=== PATIENT | female | born 1970 | race Caucasian/White ===

== ENCOUNTER 2020-05-23 15:31 | Emergency (ER) | payer OTHER, SELFPAY ==
[2020-05-23 15:42] VITALS: BP 147/80; PULSE 94; RESP 18; TEMP 36.6; O2SAT 96; BMI 43.2
--- NOTE | 2020-05-23 16:24 | PC.NURSE ---
pt is adamant about going home, her responsible ride is in the waiting room.
--- NOTE | 2020-05-23 16:24 | ED.ALCOHOL ---
HPI - Alcohol General Chief Complaint: ETOH/Substance Use <Darren Glass NP - Last Filed: 05/23/20 16:34> Stated Complaint: AMS / ETOH? <Darren Glass NP - Last Filed: 05/23/20 16:34> Time Seen by Provider: 05/23/20 16:24 <Darren Glass NP - Last Filed: 05/23/20 16:34> Source: EMS <Darren Glass NP - Last Filed: 05/23/20 16:34> Mode of arrival: EMS <Darren Glass NP - Last Filed: 05/23/20 16:34> Limitations: no limitations <Darren Glass NP - Last Filed: 05/23/20 16:34> History of Present Illness HPI narrative: Per EMS called to the grocery store for patient acting erratic and yelling. Once they got their admit to EtOH use. <Darren Glass NP - Last Filed: 05/23/20 16:34> MD complaint: alcohol intoxication <Darren Glass NP - Last Filed: 05/23/20 16:34> Chronic alcohol use: Yes (Some days of the week) <Darren Glass NP - Last Filed: 05/23/20 16:34> Previous visits for alcohol intoxication: Yes <Darren Glass NP - Last Filed: 05/23/20 16:34> Recent trauma: No <Darren Glass NP - Last Filed: 05/23/20 16:34> Associated symptoms: denies other symptoms <Darren Glass NP - Last Filed: 05/23/20 16:34> Treatments prior to arrival: none <Darren Glass NP - Last Filed: 05/23/20 16:34> Related Data Allergies/Adverse Reactions: Allergies Allergy/AdvReac Type Severity Reaction Status Date / Time gabapentin [From NEURONTIN] Allergy Unknown RASH Unverified 12/15/19 16:12 gluten [GLUTEN] Allergy Unknown GI UPSET, Unverified 12/15/19 16:12 GASSY soy [SOY] Allergy Unknown GI UPSET, Unverified 12/15/19 16:12 GASSY Sulfa (Sulfonamide Allergy Unknown RASH Unverified 12/15/19 16:12 Antibiotics) [SULFA(SULFONAMIDE ANTIBIOTICS)] wheat [WHEAT] Allergy Unknown GASSY Unverified 12/15/19 16:12 From OXYCONTIN Allergy Unknown RASH Uncoded 12/15/19 16:12 <Darren Glass NP - Last Filed: 05/23/20 16:34> Review of Systems Review of Systems: Constitutional: No Weight loss, No Fever, No Chills, No Night Sweats, No Fatigue, No Malaise ENT/Mouth: No Hearing loss, No Ear Pain, No Nasal Congestion, No Sinus Pain, No Hoarseness, No sore throat, No Rhinorrhea, No Swallowing Difficulty Eyes: No Eye Pain, No Swelling, No Redness, No Foreign Body, No Discharge, No Vision Changes Cardiovascular: No Chest Pain, No SOB, No Dyspnea on Exertion, No Orthopnea, No Edema, No Palpitations Respiratory: No Cough, No Sputum, No Wheezing, No Smoke Exposure, No Dyspnea Gastrointestinal: No Nausea, No Vomiting, No Diarrhea, No Constipation, No abdominal Pain, No Hematochezia, No Melena Genitourinary: No Dysuria, No Urinary Frequency, No Hematuria, No Urinary Incontinence, No Urgency, No Flank Pain, No Urinary Flow Changes, No Hesitancy Musculoskeletal: No joint pain, No Myalgias, No Joint Swelling Skin: No Skin Lesions, No rash Neuro: No Weakness, No Numbness, No Paresthesias, No Loss of Consciousness, No Dizziness, No Headache Psych: No Anxiety/Panic, No Depression, No SI/HI/AH/VH Heme/Lymph: No Bruising, No Bleeding,No Lymphadenopathy Endocrine: No Polyuria, No Polydipsia, No Temperature Intolerance <Darren Glass NP - Last Filed: 05/23/20 16:34> Yes all other systems are reviewed and are negative <Darren Glass NP - Last Filed: 05/23/20 16:34> [facility] Social History Social History: Social History Advance Directives: No Advance Directives Information Provided: Yes <Darren Glass NP - Last Filed: 05/23/20 16:34> Physical Exam Vital Signs: Vital Signs: Last Vital Signs Temp 97.8 F 05/23/20 15:42 Pulse 94 05/23/20 15:42 Resp 18 05/23/20 15:42 BP 147/80 H 05/23/20 15:42 Pulse Ox 96 02/24/21 15:42 Body Mass Index 43.2 Reviewed <Darren Glass NP - Last Filed: 05/23/20 16:34> Vital Signs: Last Vital Signs Temp 97.8 F 05/23/20 15:42 Pulse 94 05/23/20 15:42 Resp 18 05/23/20 15:42 BP 147/80 H 05/23/20 15:42 Pulse Ox 96 05/23/20 15:42 Body Mass Index 43.2 <Gary Tavares MD - Last Filed: 06/12/20 11:12> Const: Other: Strong odor of EtOH, appears intoxicated and verbally assaultive but able to redirect. Obese Atraumatic <Darrenliam Glass NP - Last Filed: 05/23/20 16:34> General: No acute distress or intoxicated appearing <Darrenliam Glass NP - Last Filed: 05/23/20 16:34> Nutritional Appearance: average body habitus <Darrenliam Glass NP - Last Filed: 05/23/20 16:34> Orientation/consciousness: patient oriented x3 <[facility] JUAN C Glass - Last Filed: 05/23/20 16:34> HENMT: Head: Yes normal to inspection <Darrenliam Glass NP - Last Filed: 05/23/20 16:34> Ears: hearing grossly normal bilaterally <Darrenliam Glass NP - Last Filed: 05/23/20 16:34> Eyes: General: appearance normal, both eyes and all related structures <Darren Glass NP - Last Filed: 05/23/20 16:34> Visual Gallo: normal visual gallo by confrontation <[facility] JUAN C Glass - Last Filed: 05/23/20 16:34> Neck: Neck: Yes normal visual inspection, No positive Brudzinski's sign, No positive Kernig's sign and No tender <Darren JUAN C Glass - Last Filed: 05/23/20 16:34> Thyroid: Thyroid normal <[facility] JUAN C Glass - Last Filed: 05/23/20 16:34> Chest: Chest palpation & inspection: normal inspection of the chest <Darrenliam Glass NP - Last Filed: 05/23/20 16:34> Resp: Effort & Inspection: normal respiratory effort <Darrenliam Glass NP - Last Filed: 05/23/20 16:34> Auscultation: clear to auscultation bilaterally <Darrenliam Glass NP - Last Filed: 05/23/20 16:34> Cardio: Jugular venous distension: no JVD <Darren JUAN C Glass - Last Filed: 05/23/20 16:34> GI: Inspection: Yes normal to inspection <Darren JUAN C Glass - Last Filed: 05/23/20 16:34> Percussion: Yes normal to percussion <Darren JUAN C Glass - Last Filed: 05/23/20 16:34> Auscultation: normal bowel sounds <Darren JUAN C Glass - Last Filed: 05/23/20 16:34> : General: Yes no CVA tenderness <Darrenliam Glass NP - Last Filed: 05/23/20 16:34> Back/Spine/Pelvis: Back: no CVA tenderness <Darrenliam Glass NP - Last Filed: 05/23/20 16:34> Skin: General skin exam: no rashes or lesions noted <Darrenliam Glass NP - Last Filed: 05/23/20 16:34> Neuro: General: patient oriented x3 <Darrenliam Glass NP - Last Filed: 05/23/20 16:34> Extrem: General: Yes normal to inspection <Darrenliam Glass NP - Last Filed: 05/23/20 16:34> Course Course Course Narrative: Alert and oriented x3 According to EMR history of bipolar disorder, alcohol abuse and personality disorder drinking alcohol and went to the grocery store where she got into verbal altercation that led her to come to emergency room by EMS. She declined the need to be here is requesting discharge upon arrival. She is ambulatory with somewhat steady gait but has strong odor of EtOH. <Darren Glass NP - Last Filed: 05/23/20 16:34> I have reviewed the chart <Gary Tavares MD - Last Filed: 06/12/20 11:12> Reevaluation(s) Reevaluation #1: Patient observed in the ER for an hour or so until her /boyfriend was able to come pick her up. <Darren Glass NP - Last Filed: 05/23/20 16:34> Discharge Plan Discharge Clinical Impression: Alcoholic intoxication <Darren Glass NP - Last Filed: 05/23/20 16:34> Patient Disposition: Home, Self-Care <Darren Glass NP - Last Filed: 05/23/20 16:34> Instructions: Alcohol Intoxication (ED) <Darren Glass NP - Last Filed: 05/23/20 16:34> Additional Instructions: Please do not drink alcohol heavily as this can cause harm to health and even Seek detox services Follow up with primary care doctor Return if any concerns or worsening symptoms Thank you <Darren Glass NP - Last Filed: 05/23/20 16:34> Referrals: ED Physician,Generic [Physician] - 1 week <Darren Glass NP - Last Filed: 05/23/20 16:34> Interventions: ED Discharge Assessment Last Done: 05/23/20 16:29 <Darren Glass NP - Last Filed: 05/23/20 16:34> Discharge Date/Time: 05/23/20 16:31 <Darren Glass NP - Last Filed: 05/23/20 16:34>
== END 2020-05-23 16:31 | disposition home or self-care (01) ==
PROVIDERS: Emergency Provider Emergency Medicine
DX: F10.920 Alcohol use, unspecified with intoxication, uncomplicated (principal); F31.9 Bipolar disorder, unspecified; R41.82 Altered mental status, unspecified; Y90.9 Presence of alcohol in blood, level not specified
CPT/HCPCS: 99283

== ENCOUNTER 2020-11-03 13:39 | Emergency (ER) | payer OTHER, SELFPAY ==
--- NOTE | ~2020-11-03 | XR_ITS ---
Indication: Fall EXAMINATION: Right foot, right ankle. 4 views of the right foot demonstrate fracture at the base of the second metatarsal. There is also questionable lucency at the base of the third metatarsal. This area is poorly visualized. The adjacent cuneiforms are poorly evaluated. 3 views of the left ankle demonstrate oblique fracture of the distal fibula. There is some widening of the medial mortise. Distal fibula fracture is not significantly distracted. XR/XR foot RT min 3V IMPRESSION: Oblique fracture of the distal fibula. There is some mild widening of the medial mortise. Fracture at the base of the second metatarsal and I cannot exclude fracture at the base of the third metatarsal or fracture involving the third or second cuneiform
--- NOTE | ~2020-11-03 | XR_ITS ---
Indication: Fall EXAMINATION: Right foot, right ankle. 4 views of the right foot demonstrate fracture at the base of the second metatarsal. There is also questionable lucency at the base of the third metatarsal. This area is poorly visualized. The adjacent cuneiforms are poorly evaluated. 3 views of the left ankle demonstrate oblique fracture of the distal fibula. There is some widening of the medial mortise. Distal fibula fracture is not significantly distracted. XR/XR ankle RT min 3V IMPRESSION: Oblique fracture of the distal fibula. There is some mild widening of the medial mortise. Fracture at the base of the second metatarsal and I cannot exclude fracture at the base of the third metatarsal or fracture involving the third or second cuneiform
[2020-11-03 13:42] VITALS: BP 136/94; PULSE 71; RESP 16; TEMP 36.9; O2SAT 98; BMI 41.5
--- NOTE | 2020-11-03 14:20 | ED.LOWEXIN ---
HPI - Extremity Injury (Lower) General Chief Complaint: Extremity Injury, Lower Stated Complaint: Foot Pain from fall 1wk ago Time Seen by Provider: 11/03/20 14:20 Source: patient Mode of arrival: wheelchair Limitations: no limitations History of Present Illness HPI Narrative: 49 y/o female presenting to the ER with right foot & ankle pain s/p injury 1 week ago. She reports walking up steps moving furniture bear footed and she accidentally inverted her foot and landed on her ankle bone. She had immediate pain. She took motrin and tylenol and did her best to stay off of it. It has been one week and the swelling is worsening and she has new bruising to her foot and ankle. She is unable to put pressure on her foot. No fevers, no calf pain. MD complaint: ankle injury and foot injury Onset (ago): week(s) (1) Injury: Right: ankle and foot Type of Injury: inversion Place: home Severity: severe Severity scale (1-10): 8 Relieving factors: NSAID, immobilization and rest Exacerbating factors: weight bearing, movement and palpation Context: walking Associated symptoms: swelling and unable to bear weight Other symptoms: none Treatments prior to arrival: NSAIDS Related Data Previous Rx's Medication Instructions Recorded oxycodone-acetaminophen 5 mg-325 1 tab PO Q8H PRN #7 tab 11/03/20 mg tablet (Percocet) Allergies Allergy/AdvReac Type Severity Reaction Status Date / Time gabapentin [From NEURONTIN] Allergy Unknown RASH Unverified 12/15/19 16:12 gluten [GLUTEN] Allergy Unknown GI UPSET, Unverified 12/15/19 16:12 GASSY soy [SOY] Allergy Unknown GI UPSET, Unverified 12/15/19 16:12 GASSY Sulfa (Sulfonamide Allergy Unknown RASH Unverified 12/15/19 16:12 Antibiotics) [SULFA(SULFONAMIDE ANTIBIOTICS)] wheat [WHEAT] Allergy Unknown GASSY Unverified 12/15/19 16:12 From OXYCONTIN Allergy Unknown RASH Uncoded 12/15/19 16:12 Review of Systems Review of Systems: Constitutional: No Fever, No Chills Gastrointestinal: + Nausea, No Vomiting Musculoskeletal: + joint pain, No Myalgias Skin: No Skin Lesions, No rash Neuro: No Weakness, No Numbness Psych: + Anxiety/Panic, Heme/Lymph: + Bruising, No rash PMFSH Social History Social History Advance Directives: No Advance Directives Information Provided: No Physical Exam Vital Signs: Vital Signs: Last Vital Signs Temp 98.4 F 11/03/20 13:42 Pulse 71 11/03/20 13:42 Resp 16 11/03/20 13:42 BP 136/94 H 11/03/20 13:42 Pulse Ox 98 11/03/20 13:42 Body Mass Index 41.5 Appearance: Alert. Oriented X3. No acute distress. HEENT: normal inspection CVS: Normal heart rate and rhythm. Pulses normal. Respiratory: No respiratory distress. Skin: Skin warm and dry. Normal skin color. Normal skin turgor. No rashes. Extremities: right foot and ankle with moderate swelling and scattered ecchymosis on top of foot and lateral ankle. no skin tenting. significant tenderness of lateral malleolus and distal fibula, tenderness of plantar aspect of foot, +2 DP pulses. able to move toes but not ankle. warm and well perfused. Neuro: Oriented X 3. No motor deficit. No sensory deficit. Unable to assess gait due to pain Course Course Course Narrative: 49 y/o female presenting with right ankle and foot pain s/p inversion injury 1 week ago. Swelling and bruising on exam without ability to bear weight. XR's are pending. Reevaluation(s) Reevaluation #1: XR showing oblique distal fibular fracture with widening of the mortise, 2rd metatarsal fracture and possible 3rd metatarsal as well. Ortho made aware - rec splint and seeing in the office this week. Reevaluation #2: Splint applied by tech with adequate positioning and placement. Patient is comfortable and stable for d/c home with pain control. Crutches provided. Strict NWB status discussed and importance of Ortho follow up this week. Consultations Consultation #1: Ortho- Lisa ALEXANDER - to see in the office this week. Critical Care Time Critical Care Time Critical Care Time: No Discharge Plan Discharge Clinical Impression: Fracture of distal end of fibula Qualifiers: Encounter type: initial encounter Fracture type: closed Fracture morphology: unspecified fracture morphology Laterality: right Qualified Code(s): S82.831A - Other fracture of upper and lower end of right fibula, initial encounter for closed fracture Fracture of metatarsal of right foot, closed Qualifiers: Encounter type: initial encounter Metatarsal bone: second Fracture alignment: nondisplaced Qualified Code(s): S92.324A - Nondisplaced fracture of second metatarsal bone, right foot, initial encounter for closed fracture Patient Disposition: Home, Self-Care Instructions: Ankle Fracture (ED), Foot Fracture in Adults (ED) Additional Instructions: Your x-rays today showed your broke your ankle and bones in your foot. Keep the splint in place until you are seen by Orthopedics this week. Do not get it wet. Do not put any weight on your right foot. Use crutches. No driving. Keep your foot elevated as much as possible. Call Orthopedics listed below Thursday morning. Take the prescribed medication as needed for severe pain. If you develop new or worsening symptoms call 911 or come back to the ER for further evaluation. Prescriptions: New oxycodone-acetaminophen [Percocet] 5-325 mg tablet 1 tab PO Q8H PRN (Reason: pain) Qty: 7 RF: 0 Referrals: Lisa Torres PA-C [Physician Office Services Coordinator] - 2 days (distal fibular fracture, 2nd metatarsal fracture)
[2020-11-03] MEDS: HYDROcodone Bit/Acetam 5/325 TABLET 1 TAB PO (15:06)
== END 2020-11-03 16:45 | disposition home or self-care (01) ==
PROVIDERS: Emergency Provider Emergency Medicine Emergency Medical Services
DX: S82.431A Displaced oblique fracture of shaft of right fibula, initial encounter for closed fracture (principal); S82.831A Other fracture of upper and lower end of right fibula, initial encounter for closed fracture; S92.324A Nondisplaced fracture of second metatarsal bone, right foot, initial encounter for closed fracture; X50.1XXA Overexertion from prolonged static or awkward postures, initial encounter; Y93.E9 Activity, other interior property and clothing maintenance; Y92.018 Other place in single-family (private) house as the place of occurrence of the external cause; Y99.9 Unspecified external cause status
CPT/HCPCS: 73610; 73630; 99283

== ENCOUNTER → 2020-11-06 08:02 | Outpatient (BNVA) | payer OTHER, SELFPAY | PROVIDERS: Visit Provider Physician Assistant | DX: S82.831A Other fracture of upper and lower end of right fibula, initial encounter for closed fracture (principal); S92.321A Displaced fracture of second metatarsal bone, right foot, initial encounter for closed fracture; S92.331A Displaced fracture of third metatarsal bone, right foot, initial encounter for closed fracture | CPT/HCPCS: 99202 ==

== ENCOUNTER 2020-11-20 07:48 | Outpatient (REF) | payer OTHER, SELFPAY ==
--- NOTE | ~2020-11-20 | XR_ITS ---
EXAMINATION: XR ANKLE, RIGHT CLINICAL INFORMATION: Right ankle pain. COMPARISON: None TECHNIQUE: AP, lateral, and mortise views of the right ankle. FINDINGS: There is a minimally spiral fracture of the distal fibular metadiaphysis with extension to the tibiotalar joint space. The medial malleolus is intact. The tarsal bones are normally aligned. Very small plantar and retrocalcaneal spurs are seen. There is mild soft tissue swelling. XR/XR ankle RT min 3V IMPRESSION: Acute, minimally displaced distal fibular intra-articular fracture with mild soft tissue swelling.
== END 2020-11-20 07:49 | disposition home or self-care (01) ==
LOC: HO.HOSX 07:48
PROVIDERS: Visit Provider Physician Assistant
DX: S92.331A Displaced fracture of third metatarsal bone, right foot, initial encounter for closed fracture (principal); S92.321A Displaced fracture of second metatarsal bone, right foot, initial encounter for closed fracture; S82.831A Other fracture of upper and lower end of right fibula, initial encounter for closed fracture
CPT/HCPCS: 73610; 99212

== ENCOUNTER 2020-12-18 12:50 | Outpatient (REF) | payer OTHER, SELFPAY | END 2020-12-18 12:51 | disposition home or self-care (01) | LOC: HO.HOSX 12:50 | PROVIDERS: Visit Provider Physician Assistant | DX: Z13.89 Encounter for screening for other disorder (principal) ==

== ENCOUNTER 2022-01-02 16:10 | Emergency (ER) | payer OTHER, SELFPAY ==
[2022-01-02 17:01] VITALS: BP 109/72; PULSE 96; RESP 18; TEMP 36.6; O2SAT 91
[2022-01-02 17:17] VITALS: BP 103/66; BP 127/81; PULSE 89; PULSE 90; RESP 12; TEMP 36.7; O2SAT 94; O2SAT 95; BMI 38.2
--- NOTE | 2022-01-02 18:13 | ECG_ITS ---
Test Reason : AMS Blood Pressure : / mmHG Vent. Rate : 097 BPM Atrial Rate : 097 BPM P-R Int : 166 ms QRS Dur : 088 ms QT Int : 374 ms P-R-T Axes : 075 182 092 degrees QTc Int : 474 ms Normal sinus rhythm Right superior axis deviation Low voltage QRS Septal infarct , age undetermined Abnormal ECG No previous ECGs available Referred By: Mari Easley Electronically Signed By:JOSE ARCHER
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
[2022-01-02 19:00] VITALS: BP 148/91; PULSE 95; RESP 16; TEMP 36.6; O2SAT 95
[2022-01-02 19:41] LABS: MANUAL DIFF FLAG NO
[2022-01-02 19:43] LABS: Basophils Percent Auto 0.5 % (0-2); Eosinophils Absolute Auto 0.1 X10*3/uL (0.0-0.4); Eosinophils Percent Auto 0.8 % (0-4); Hematocrit 45.9 % (37.0-47.0); Hemoglobin 15.8 g/dl (12.0-16.0); Imm Gran Abs Auto 0.02 X10*3/uL (0.00-0.03); Imm Gran Pct Auto 0.2 % (0.0-0.4); Lymphocytes Absolute Auto 2.7 X10*3/uL (1.2-4.9); Lymphocytes Percent Auto 32.9 % (20-40); Mean Corpuscular HGB Conc 34.4 g/dl (31.0-35.0); Mean Corpuscular Volume 90.2 fL (80.0-98.0); Monocytes Absolute Auto 0.6 X10*3/uL (0.1-1.2); Neutrophils Absolute Auto 4.9 x10*3/uL (2.0-8.3); Neutrophils Percent Auto 58.6 % (45-73); Platelet Count 185 X10*3/uL (160-400); Red Blood Count 5.09 X10*6/uL (4.20-5.50); Red Cell Distribution Width 14.9 % (11.0-16.0); White Blood Count 8.3 X10*3/uL (4.8-10.8)
[2022-01-02 19:45] LABS: Appearance Urine Cloudy; Color Urine Yellow; Glucose Urine UA Negative (Negative); Leukocyte Esterase Urine Small (1+) (Negative); Nitrite Urine Positive (Negative); PH 5.5 (5.0-9.0); UMIC TRIGGER UACC YES; Urine Blood Trace (Negative); Urine Ketones Negative (Negative); Urine Protein Trace mg/dL (Neg-Trace)
[2022-01-02] MEDS: chlordiazePOXIDE HCl 25 MG CAPSULE 50 MG PO (19:46)
[2022-01-02] MEDS: Multivitamin TABLET 1 TAB PO (19:47)
[2022-01-02] MEDS: ondansetron HCL 4 MG/2 ML VIAL IVPUSH (19:47)
[2022-01-02] MEDS: 0.9 % Sodium Chloride 1,000 ML 999 ML IV (19:48)
[2022-01-02 19:49] LABS: Bacteria Urine 4+ (None Seen); Hyaline Casts Urine 0-2 /LPF (0-2); Squamous Epithelial Cell Urine >20 /HPF (0-2); UACC Culture Trigger YES
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
[2022-01-02 20:01] LABS: COVID-19 Test Negative (Negative)
[2022-01-02 20:05] LABS: Amphetamine Screen Urine Not Detected (Not Detect); Barbiturates, Urine Not Detected (Not Detect); Benzodiazepines Screen Urine Not Detected (Not Detect); Cannabinoid Screen Urine POSITIVE (Not Detect); Cocaine Screen Urine Not Detected (Not Detect); Fentanyl, urine Not Detected (Not Detect); Opiate Screen Urine Not Detected (Not Detect); Phencyclidine Screen Urine Not Detected (Not Detect)
[2022-01-02 20:12] LABS: Alanine Aminotransferase 35 U/L (0-31); Albumin Level 4.1 g/dL (3.5-5.0); Alkaline Phosphatase 122 U/L (39-117); Anion Gap 22 (12-20); Aspartate Amino Transferase 49 U/L (5-31); Bilirubin Direct 0.2 mg/dL (0.0-0.5); Bilirubin Total 0.4 mg/dL (0.0-1.0); Blood Urea Nitrogen 7 mg/dL (9-16); Calcium 8.7 mg/dL (8.4-10.2); Carbon Dioxide 23 mmol/L (22-29); Chloride 101 mmol/L (96-108); Creatinine Clr Calc Pharmacy 104.9; Estimated Glomerular Filt Rate > 60; Ethanol 254 mg/dL; Glucose Random 104 mg/dL (60-115); Lipase 34 U/L (8-78); Magnesium 1.9 mg/dL (1.6-2.6); Potassium 4.2 mmol/L (3.3-5.1); Sodium 142 mmol/L (135-145)
[2022-01-02 21:51] LABS: Appearance Urine Cloudy; Color Urine Yellow; Glucose Urine UA Negative (Negative); Leukocyte Esterase Urine Moderate (2+) (Negative); Nitrite Urine Positive (Negative); PH 5.5 (5.0-9.0); Specific Gravity - Urine 1.015 (1.005-1.025); UMIC TRIGGER UA YES; Urine Blood Small (1+) (Negative); Urine Ketones 15 mg/dL (Negative); Urine Protein 30 (1+) mg/dL (Neg-Trace)
[2022-01-02 22:07] LABS: Bacteria Urine 4+ (None Seen); RBC Urine >20 /HPF (0-2); WBC Urine >50 /HPF (0-5)
[2022-01-02] MEDS: Ondansetron ODT 4 MG TAB.RAPDIS TRANSLINGU (22:40)
[2022-01-02] MEDS: chlordiazePOXIDE HCl 25 MG CAPSULE PO (23:07)
[2022-01-02 23:09] VITALS: BP 123/87; PULSE 101; RESP 17; TEMP 36.6; O2SAT 96
[2022-01-03] MEDS: Metoclopramide HCl 10 MG TABLET PO (01:02)
[2022-01-03] MEDS: diphenhydrAMINE HCL 25 MG TABLET PO (01:02)
[2022-01-03] MEDS: Haloperidol Lactate 5 MG/ML VIAL 2 MG IM (04:20)
--- NOTE | 2022-01-03 04:26 | PC.NURSE ---
Patient received Zofran 4 mg at 2240 with minimal effect, Reglan at 0102 with minimal effect, vomiting continues, patient requested Haldol/provider notified ordered Haldol 2 mg IM for vomiting/administered as ordered @ 0420/pending effect, will continue to monitor.
[2022-01-03] MEDS: chlordiazePOXIDE HCl 25 MG CAPSULE PO ×2 (04:30→11:13)
--- NOTE | 2022-01-03 06:42 | PC.NURSE ---
Patient had been sleeping since 419, positive from Haldol 2 mg IM, [facility] referral completed/confirmed/pending ETA in the morning, behavior appropriate and non concerning, Librium 25 mg administered twice with good effect, patient is positive for UTI, antibiotic ordered/will be started this morning, patient is asymptomatic of withdrawal at this time, will continue to monitor.
--- NOTE | 2022-01-03 07:25 | PC.NURSE ---
Report received. PT currently eating breakfast, calm and cooperative. PT waiting to be seen by crisis.
[2022-01-03 07:44] VITALS: BP 151/100; PULSE 100; RESP 15; TEMP 36.6; O2SAT 98
[2022-01-03] MEDS: Milk of Magnesia 30 ML ORAL.SUSP PO (08:00)
[2022-01-03] MEDS: chlordiazePOXIDE HCl 25 MG CAPSULE 50 MG PO (08:00)
--- NOTE | 2022-01-03 08:39 | MHC.CARE ---
CARE Team attempted to meet with Pt and wouldnt engage
--- NOTE | 2022-01-03 10:26 | MHC.CARE ---
Pt is a 51 year old female who? presented to the ED with a BAL of 254 and question of SI. Today, now clinical sober Pt is currently denying SI/HI/VH/AH reporting feeling stressed related to her relationship with her .? Pt does not recall making a suicidal? statement. Pt has current outpatient providers through [facility]. Pt is advocating for a detox admission from alcohol and agreeable.? CARE Team review case with Dr. Estrada and who is in agreement with the plan for detox bedsearch.?
[2022-01-03] MEDS: Ondansetron ODT 4 MG TAB.RAPDIS TRANSLINGU (11:13)
--- NOTE | 2022-01-03 12:15 | PHA.MEDREC ---
Pharmacy Consult ? Medication Reconciliation Pharmacy has completed the medication reconciliation. Spoke with patient in the [facility]. Patient states she is on all meds but has not filled at pharmacy since june/july/august. She states she has not taken her medication in over a week.
[2022-01-03] MEDS: Omeprazole 20 MG CAPSULE.DR PO (13:06)
--- NOTE | 2022-01-03 14:41 | MHC.RECOVSUP ---
Recovery Support note: Patient was declined from [facility] due to her withdrawal being too acute. No beds available at [facility] at this time. Patient is not interested in going further away for treatment. Patient is requesting discharge. Referral will be made to [facility] and patient will be provided with the number for this facility and [facility]. Discussed with CARE Team and ED physician. Plan for patient to discharge and follow up with [facility].
[2022-01-03 15:16] VITALS: BP 124/82; PULSE 89; RESP 17; TEMP 36.7; O2SAT 98
== END 2022-01-03 16:35 | disposition home or self-care (01) ==
PROVIDERS: Physician Assistant; Emergency Provider Emergency Medicine
DX: R45.851 Suicidal ideations (principal); F10.220 Alcohol dependence with intoxication, uncomplicated; F10.230 Alcohol dependence with withdrawal, uncomplicated; Y90.8 Blood alcohol level of 240 mg/100 ml or more; N39.0 Urinary tract infection, site not specified; F41.9 Anxiety disorder, unspecified; R44.1 Visual hallucinations; R11.2 Nausea with vomiting, unspecified; F17.200 Nicotine dependence, unspecified, uncomplicated; F12.90 Cannabis use, unspecified, uncomplicated; Z79.899 Other long term (current) drug therapy; Z20.822 Contact with and (suspected) exposure to COVID-19
CPT/HCPCS: 80048; 80076; 80307; 81001; 82077; 83690; 83735; 85025; 87086; 87635; 93005; 96361; 96372; 96374; 99285; J2405; Q0163

== ENCOUNTER 2022-03-10 15:40 | Outpatient (REF) | payer OTHER, SELFPAY ==
--- NOTE | ~2022-03-10 | XR_ITS ---
EXAMINATION: XR KNEE, LEFT CLINICAL INFORMATION: M25.562 - Pain in left knee COMPARISON: Left knee radiographs 04/06/2006 TECHNIQUE: Four views of the left knee. FINDINGS: There are mild degenerative changes medial knee joint compartment with borderline joint narrowing and marginal osteophytes from the medial tibial plateau and medial femoral condyle. There is no erosive change or chondral calcinosis. There is a moderate to large suprapatellar effusion. Hoffa's fat pad appears normal. There are a few subtle nonspecific sclerotic foci suggested distal femoral shaft on the frontal and oblique views, not confirmed on the lateral projection. No cortical thickening. Recommend correlation with past medical history and clinical history. If clinically indicated, the knee could be further assessed with MRI. XR/XR knee LT 4V IMPRESSION: -Moderate to large suprapatellar effusion. -Mild osteoarthritis medial knee joint compartment. -Subtle nonspecific sclerotic foci suggested distal femoral shaft on AP and lateral views, not confirmed on lateral view.
== END 2022-03-10 15:41 | disposition home or self-care (01) ==
LOC: HO.HMGCX 15:40
PROVIDERS: Visit Provider Physician Assistant
DX: M25.562 Pain in left knee (principal)
CPT/HCPCS: 73564

== ENCOUNTER 2022-04-30 12:09 | Outpatient (REF) | payer OTHER, SELFPAY ==
--- NOTE | ~2022-04-30 | XR_ITS ---
EXAMINATION: XR WRIST, RIGHT CLINICAL INFORMATION: Pain status-post contusion. COMPARISON: Radiographs dated 04/06/2006. TECHNIQUE: PA, lateral, and oblique views of the right wrist are submitted, together with a dedicated navicular view. FINDINGS: Bony alignment and mineralization are normal. There is a neutral ulnar variance. No fracture or dislocation is seen. There is mild osteoarthritic change of the first carpometacarpal and metacarpophalangeal joints. The proximal and distal carpal rows are intact. No abnormal bone erosion is seen. There is no foreign body. XR/XR wrist RT min 3V IMPRESSION: There is mild osteoarthritic change of the right first carpometacarpal and metacarpophalangeal joints. No fracture or dislocation is seen. There is no abnormal bone erosion.
== END 2022-04-30 12:10 | disposition home or self-care (01) ==
LOC: HO.HMGCX 12:09
PROVIDERS: Visit Provider Internal Medicine
DX: S60.211A Contusion of right wrist, initial encounter (principal); X58.XXXA Exposure to other specified factors, initial encounter; Y93.9 Activity, unspecified; Y92.9 Unspecified place or not applicable; Y99.9 Unspecified external cause status
CPT/HCPCS: 73110